=== PATIENT | female | born 1935 | race Caucasian/White ===

== ENCOUNTER 2016-09-04 16:52 | Emergency (ER) | payer MEDICARE, BC ==
[2016-09-04 18:14] LABS: BASO % 0.3 % (0-6); EOS % 0.7 % (0-6); GRAN % 77.4 % (47-80); HEMATOCRIT 43.3 % (35.0-47.0); HEMOGLOBIN 14.5 gm/dl (11.6-16.0); MEAN CELL VOLUME 91.7 fl (81-97); MEAN CORPUSCULAR HEMOGLOBIN 30.7 pg (27-33); MEAN CORPUSCULAR HGB CONC 33.5 g/dl (32-36); MEAN PLATELET VOLUME 10.1 fl (7.4-10.4); MONO % 7.6 % (0-9); PLATELET COUNT 365 K/uL (130-400); RED BLOOD COUNT 4.72 M/uL (3.80-5.40); RED CELL DISTRIBUTION WIDTH 14.3 % (11.5-14.5)
[2016-09-04 18:24] LABS: ANION GAP 9.8 (7-16); CARBON DIOXIDE 33.2 mmol/L (22-30); CREATININE 1.2 mg/dL (0.52-1.04)
[2016-09-04 18:26] LABS: INR 2.09; PROTHROMBIN TIME (PATIENT) 23.6 SECONDS (9.5-12.1)
--- NOTE | 2016-09-04 18:35 | Emergency Department Record ---
History of Present Illness - General Chief complaint: Lower Extremity Pain Stated complaint: FALL Time Seen by Provider: 09/04/16 17:25 Source: Patient, Family Mode of Arrival: Wheelchair Limitations: No limitations - History of Present Illness Initial comments: pt was brought in today because family noted an ulcer on pts heel and pt states she cannot move of feel her leg. she states she has been unable to bear weight and has been dragging it and does not feel anything touching it. pt fell in last few days as well, poor historian Onset/Timin -: Days(s) Location: Left, Foot, Lower Leg, Thigh, Other History of Same: No Consistency: Constant Improves with: Nothing Worsens with: Exertion, Walking, Weight bearing Associated Symptoms: Denies other symptoms - Related Data Home Medications Medication Instructions Recorded Confirmed Last Taken Atorvastatin Calcium [Lipitor] 40 mg PO QHS 02/21/14 07/10/16 07/09/16 Clopidogrel Bisulfate [Plavix] 75 mg PO DAILY 02/21/14 07/10/16 07/10/16 Gabapentin [Neurontin] 100 mg PO TID 09/09/15 07/10/16 07/10/16 Febuxostat [Uloric] 40 mg PO DAILY 03/11/16 07/10/16 07/10/16 Insulin Aspart [Novolog] 2 unit SQ ASDIR 03/11/16 07/10/16 Unknown Insulin NPL/Insulin Lispro 50 unit SQ QAM 03/11/16 07/10/16 07/10/16 [Humalog Mix 75/25 Vial] Previous Rx's Medication Instructions Recorded Albuterol Sulfate [Ventolin Hfa] 2 puff INH RESP.Q4H PRN #0 inhaler 07/12/16 Clopidogrel Bisulfate [Plavix] 75 mg PO DAILY tab 07/12/16 Furosemide [Lasix] 40 mg PO DAILY tablet 07/12/16 Hydrocodone/Acetaminophen [[place] 1 tab PO Q6H PRN #30 tab 07/12/16 5mg/325mg] Metoprolol Tartrate [Lopressor] 25 mg PO BID #0 tab 07/12/16 Omeprazole 20 mg PO DAILY #30 tab.dr 07/12/16 Potassium Chloride [Klor-Con] 10 meq PO DAILY #0 tablet.sa 07/12/16 Acetaminophen [Tylenol 325Mg] 650 mg PO Q6H PRN #0 tablet 07/21/16 Albuterol Sulfate [Ventolin Hfa] 2 puff INH RESP.Q4H PRN #0 inhaler 07/21/16 Furosemide [Lasix] 40 mg PO DAILY tablet 07/21/16 Insulin NPL/Insulin Lispro 15 unit SQ [id number] #3 syringe 07/21/16 [Humalog Mix 75-25 Kwikpen] Warfarin Sodium [Coumadin] 2 mg PO QHS #30 tablet 07/21/16 Allergies Allergy/AdvReac Type Severity Reaction Status Date / Time codeine Allergy Mild NAUSEA AND Verified 03/11/16 14:13 VOMITING Travel Screening - Travel/Exposure Within Last 30 Days Have you traveled within the last 30 days?: No - Travel/Exposure Within Last Year Have you traveled outside the [place] in the last year?: No - Additonal Travel Details Have you been exposed to anyone with a communicable illness?: No - Travel Symptoms Symptom Screening: None Review of Systems Reviewed: No additional complaints except as noted below Constitutional: Reports: As per HPI. Denies: Chills, Fever, Malaise, Night sweats, Weakness, Weight change Eyes: Reports: As per HPI. Denies: Eye discharge, Eye pain, Photophobia, Vision change ENT: Reports: As per HPI. Denies: Congestion, Dental pain, Ear pain, Epistaxis , Hearing loss, Throat pain Respiratory: Reports: As per HPI. Denies: Cough, Dyspnea, Hemoptysis, Stridor, Wheezes Cardiovascular: Reports: As per HPI. Denies: Arrhythmia, Chest pain, Dyspnea on exertion, Edema, Murmurs, Orthopnea, Palpitations, Paroxysmal nocturnal dyspnea, Rheumatic Fever, Syncope Endocrine: Reports: As per HPI. Denies: Fatigue, Heat or cold intolerance, Polydipsia, Polyuria Gastrointestinal: Reports: As per HPI. Denies: Abdominal pain, Constipation, Diarrhea, Hematemesis, Hematochezia, Melena, Nausea, Vomiting Genitourinary: Reports: As per HPI. Denies: Abnormal menses, Discharge, Dyspareunia, Dysuria, Frequency, Hematuria, Incontinence, Retention, Urgency Musculoskeletal: Reports: As per HPI. Denies: Arthralgia, Back pain, Gout, Joint swelling, Myalgia, Neck pain Skin: Reports: As per HPI. Denies: Bruising, Change in color, Change in hair/ nails, Lesions, Pruritus, Rash Neurological: Reports: As per HPI. Denies: Abnormal gait, Confusion, Headache, Numbness, Paresthesias, Seizure, Tingling, Tremors, Vertigo, Weakness Psychiatric: Reports: As per HPI. Denies: Anxiety, Auditory hallucinations, Depression, Homicidal thoughts, Suicidal thoughts, Visual hallucinations Hematological/Lymphatic: Reports: As per HPI. Denies: Anemia, Blood Clots, Easy bleeding, Easy bruising, Swollen glands Past Medical History - SOCIAL HISTORY Smoking Status: Never smoker Alcohol Use: None Drug Use: None - RESPIRATORY Hx Respiratory Disorders: Yes Hx Dyspnea: Yes (no change from baseline) - CARDIOVASCULAR Hx Cardio Disorders: Yes Hx CHF: Yes Hx Edema: Yes Hx Hypertension: Yes Hx Irregular Heartbeat: Yes (Afib) - NEURO Hx Neuro Disorders: No - GI Hx GI Disorders: Yes Hx Ulcer: Yes - Hx Genitourinary Disorders: Yes Hx Bladder Problem: Yes (URINARY INCONTINENCE) - ENDOCRINE Hx Endocrine Disorders: Yes Hx Diabetes: Yes (insulin dep) - MUSCULOSKELETAL Hx Musculoskeletal Disorders: Yes Hx Arthritis: Yes Hx Gout: Yes - PSYCH Hx Psych Problems: Yes Hx Anxiety: Yes Hx Depression: Yes - HEMATOLOGY/ONCOLOGY Hx Hematology/Oncology Disorders: No Family Medical History Any Significant Family History?: Yes Hx Cancer: Brother/Sister Hx Dementia: Brother/Sister Hx Diabetes: Brother/Sister Hx Heart Disease: Brother/Sister Hx HTN: Brother/Sister Physical Exam - General General Appearance: Alert, Oriented x3, Cooperative, Mild distress - Head Head exam: Normal inspection - Eye Eye exam: Normal appearance, PERRL, EOMI Pupils: Normal accommodation - ENT ENT exam: Normal exam, Mucous membranes moist, Normal external ear exam, Normal orophraynx Ear exam: Normal external inspection. negative: External canal tenderness Nasal Exam: Normal inspection. negative: Discharge, Sinus tenderness Mouth exam: Normal external inspection, Tongue normal Teeth exam: Normal inspection. negative: Dental caries Throat exam: Normal inspection. negative: Tonsillar erythema, Tonsillar exudate - Neck Neck exam: Normal inspection, Full ROM. negative: Tenderness - Respiratory Respiratory exam: Normal lung sounds bilaterally. negative: Respiratory distress - Cardiovascular Cardiovascular Exam: Normal rhythm, Normal heart sounds, Tachycardia - GI/Abdominal GI/Abdominal exam: Soft, Normal bowel sounds. negative: Tenderness - Rectal Rectal exam: Deferred - exam: Deferred - Extremities Extremities exam: Tenderness. negative: Normal inspection, Full ROM, Normal capillary refill Image of Feet: 1 - ulcer 2 - foot is cold and white w no discernible pulses and decreased sensation. leg is discoloredl - Back Back exam: Reports: Normal inspection, Full ROM. Denies: Muscle spasm, Rash noted, Tenderness - Neurological Neurological exam: Alert, CN II-XII intact, Normal gait, Oriented X3 - Psychiatric Psychiatric exam: Normal affect, Normal mood - Skin Skin exam: Dry, Intact, Normal color, Warm Course Vital Signs 09/04/16 17:07 Temperature 98 F Pulse Rate 115 H Respiratory 22 Rate Blood Pressure 129/74 Pulse Ox 97 - Reevaluation(s) Reevaluation #1: 09/04/16 19:50 d/w dr phillips Medical Decision Making - Management Options MDM Management: Additional Work-up Planned (e.g. ADM/Transfer/OP Study) - Data Complexity MDM Data: Labs Ordered and/or Reviewed, X-Ray Ordered and/or Reviewed - Lab Data Result diagrams: 09/04/16 18:05 09/04/16 18:05 Lab Results 09/04/16 09/04/16 09/04/16 Range/Units 18:05 18:05 18:05 WBC 11.0 (4.2-12.2) K/uL RBC 4.72 (3.80-5.40) M/uL Hgb 14.5 (11.6-16.0) gm/dl Hct 43.3 (35.0-47.0) % MCV 91.7 (81-97) fl MCH 30.7 (27-33) pg MCHC 33.5 (32-36) g/dl RDW 14.3 (11.5-14.5) % Plt Count 365 (130-400) K/uL MPV 10.1 (7.4-10.4) fl Gran % 77.4 (47-80) % Lymphocytes % 14.0 L (16-45) % Monocytes % 7.6 (0-9) % Eosinophils % 0.7 (0-6) % Basophils % 0.3 (0-6) % PT 23.6 H (9.5-12.1) SECONDS INR 2.09 Sodium 141 (136-145) mmol/L Potassium 3.9 (3.5-5.1) mmol/L Chloride 98 (98-107) mmol/L Carbon Dioxide 33.2 H (22-30) mmol/L Anion Gap 9.8 (7-16) BUN 24 H (7-17) mg/dL Creatinine 1.2 H (0.52-1.04) mg/dL Estimated GFR 46 ml/min Random Glucose 106 (70-110) mg/dL Calcium 9.0 (8.5-10.1) mg/dL - Radiology Data Radiology results: Report reviewed, Image reviewed Disposition Disposition: Transfer Clinical Impression: Vascular insufficiency of extremity, Unable to ambulate, IDDM (insulin dependent diabetes mellitus), Compression fracture Foot ulcer Qualifiers: Laterality: left Non-pressure ulcer stage: with necrosis of muscle Qualified Code(s): L97.523 - Non-pressure chronic ulcer of other part of left foot with necrosis of muscle Disposition: Acute Care Hospital Transfer Transfer To: [facility] Reason For Transfer: vascular insufficiency and severe comp fractures Accepting Physician: dr phillips Time Discussed w/Accepting Physician: 19:47 Forms: Patient Portal Access
[2016-09-04] MEDS: HYDROMORPHONE HCL 1 MG/ML CPJ IVP ONE ×2 (19:40→21:35)
[2016-09-04] MEDS: PROMETHAZINE HCL 25 MG/ML VIAL IVP ONE (19:40)
--- NOTE | 2016-09-07 11:02 | RADIOLOGY REPORT ---
DATE: 09/04/2016. EXAM: X-RAY OF THE LEFT FOOT. HISTORY: The patient has a history of injury to the left foot. TECHNIQUE: Three views of the left foot are provided without comparison examination. FINDINGS: Osteopenia of the osseus structures is noted. There is no radiographic evidence of an acute fracture or dislocation of the left foot. Soft tissue swelling is noted over the first metatarsophalangeal joint. No obvious osteolytic of osteoblastic lesions are identified. No radiopaque foreign bodies are identified. There is soft tissue swelling identified over the calcaneus without evidence of osseus cortical destruction to suggest osteomyelitis. However, osteomyelitis cannot be excluded. If there is further clinical concern then an MRI of the left foot can be obtained for further evaluation. IMPRESSION: SOFT TISSUE SWELLING IS NOTED OVER THE LEFT FOOT DESCRIBED ABOVE. NO OBVIOUS RADIOGRAPHIC EVIDENCE OF OSTEOMYELITIS. HOWEVER, OSTEOMYELITIS CANNOT BE EXCLUDED. IF THERE IS FURTHER CLINICAL CONCERN THEN AN MRI OF THE LEFT FOOT COULD BE OBTAINED FOR FURTHER EVALUATION. JOB NUMBER: [id number] MTDD
--- NOTE | 2016-09-07 11:09 | RADIOLOGY REPORT ---
DATE: 09/04/2016. EXAM: X-RAY OF THE LUMBAR SPINE. HISTORY: The patient has a history of a fall one month ago. The patient is unable to bear weight. TECHNIQUE: Four views of the lumbar spine are provided along with a comparison study dated 07/10/2016. FINDINGS: In the interval there has been a significant compression deformity of the L2 vertebral body which is new with respect to the prior examination. These findings are suspicious for acute compression fracture. There is a significant compression deformity of the T11 vertebral body which is unchanged with respect to prior examination. IMPRESSION: 1. INTERVAL DEVELOPMENT OF AN ACUTE COMPRESSION FRACTURE OF THE L2 VERTEBRAL BODY IS NOTED DESCRIBED. 2. NO SIGNIFICANT RETROPULSION AT THE POSTERIOR CORTEX IS NOTED. 3. IF THERE IS FURTHER CLINICAL CONCERN THEN AN MRI OF THE LUMBAR SPINE CAN BE OBTAINED FOR FURTHER EVALUATION. JOB NUMBER: [id number] MTDD
--- NOTE | 2016-09-07 11:13 | RADIOLOGY REPORT ---
DATE: 09/04/2016. EXAM: X-RAY OF THE PELVIS. HISTORY: The patient has a history of a fall. TECHNIQUE: Two views of the pelvis are provided without comparison studies. FINDINGS: There is no radiographic evidence of a fracture or dislocation of the visualized pelvis. The bilateral hips are unremarkable. No significant soft tissue abnormalities are visualized. The sacroiliac joints demonstrate degenerative changes. IMPRESSION: 1. NO RADIOGRAPHIC EVIDENCE OF AN ACUTE PROCESS INVOLVING THE PELVIS. 2. DEGENERATIVE CHANGES OF THE SACROILIAC JOINTS ARE NOTED. JOB NUMBER: [id number] MTDD
--- NOTE | 2016-09-07 11:25 | CT SCAN REPORT ---
DATE: 09/04/2016. EXAM: CT SCAN OF THE HEAD. HISTORY: The patient has a history of a fall. TECHNIQUE: Serial axial CT scan of the head was performed at 2.5 mm intervals from the base of the skull to the apex without the use of intravenous contrast. Sagittal and coronal reconstruction views were provided. FINDINGS: Moderate parenchymal volume loss is noted. There is no mass or mass effect. Mild to moderate periventricular and subcortical white matter chronic small-vessel ischemic changes are identified. There is no CT evidence of intra- or extra-axial fluid collection to suggest bleeding. Bone windows demonstrate no CT evidence of a fracture or dislocation of the skull. The paranasal sinuses are unremarkable. IMPRESSION: PARENCHYMAL VOLUME LOSS AND CHRONIC SMALL-VESSEL ISCHEMIC CHANGES ARE IDENTIFIED WITHOUT CT EVIDENCE OF AN ACUTE INTRACRANIAL PROCESS. JOB NUMBER: [id number] [facility]
== END 2016-09-04 22:02 | disposition short-term general hospital (02) ==
LOC: ER 16:52
DX: E11.621 Type 2 diabetes mellitus with foot ulcer (principal); E11.51 Type 2 diabetes mellitus with diabetic peripheral angiopathy without gangrene; L97.523 Non-pressure chronic ulcer of other part of left foot with necrosis of muscle; S32.029A Unspecified fracture of second lumbar vertebra, initial encounter for closed fracture; I50.9 Heart failure, unspecified; I48.91 Unspecified atrial fibrillation; Z79.01 Long term (current) use of anticoagulants; Z79.4 Long term (current) use of insulin; Z91.81 History of falling; W19.XXXA Unspecified fall, initial encounter
CPT/HCPCS: 99285 ×2; 96376; 96374; 96375; 85025; 85610; 80048; 73630; 72100; 72170; 70450; J1170; 99284; J2550